=== PATIENT | male | born 1975 | race African-American/Black ===

== ENCOUNTER 2019-02-09 01:18 | Emergency (ER) | payer OTHER ==
[~2019-02-09] VITALS: Ht 188 cm; Wt 135.2 kg
[2019-02-09] MEDS ORDERED: IPRATRPIUM/ALBUTEROL 0.5/2.5MG 3 ML NEBU. NEB ONE (01:45)
[2019-02-09] MEDS ORDERED: KETOROLAC 15 MG/ML VIAL. ONE (01:45)
[2019-02-09] MEDS ORDERED: ACETAMINOPHEN 500 MG TABLET PO ONE (02:00)
[2019-02-09] MEDS ORDERED: KETOROLAC 15 MG/ML VIAL. IV ONE (02:00)
[2019-02-09] MEDS ORDERED: IV NORMAL SALINE 1,000ML 1,000 ML IV ONE (02:00)
[2019-02-09 02:09] LABS: BASO # 0.1 x10^3/uL (0.0-0.2); BASO % 1 % (0-3); EOS # 0.3 x10^3/uL (0.0-0.7); EOS % 4 % (0-3); HEMATOCRIT 42.9 % (39.0-53.0); HEMOGLOBIN 14.3 g/dL (13.0-17.5); LYMPH # 1.9 x10^3/uL (1.0-4.8); LYMPH % 19 % (24-48); MEAN CORPUSCULAR HEMOGLOBIN 30 pg (25-35); MEAN CORPUSCULAR HGB CONC 33 g/dL (31-37); MEAN CORPUSCULAR VOLUME 89 fL (79-100); MONO # 0.8 x10^3/uL (0.0-1.1); MONO % 8 % (0-9); NEUT # 6.8 x10^3uL (1.8-7.7); NEUT % 69 % (31-73); PLATELET COUNT 149 x10^3/uL (140-400); RED CELL DISTRIBUTION WIDTH 13.7 % (11.5-14.5); WHITE BLOOD COUNT 9.9 x10^3/uL (4.0-11.0)
--- NOTE | 2019-02-09 02:12 | RAD ---
CHEST PA LATERAL History: Fever. Cough. Comparison: None. Findings: No consolidation or pleural effusion. Normal heart size. No pneumothorax. Impression: 1. No acute cardiopulmonary process. Electronically signed by: Octavio Olivas DO (02/09/2019 2:09 AM) [facility]
[2019-02-09 02:29] LABS: ALBUMIN 3.6 g/dL (3.4-5.0); ALBUMIN/GLOBULIN RATIO 0.8 (1.0-1.7); CALCIUM 8.7 mg/dL (8.5-10.1); CREATININE 1.3 mg/dL (0.7-1.3); GFR 72.2; POTASSIUM 3.9 mmol/L (3.5-5.1); TOTAL BILIRUBIN 0.3 mg/dL (0.2-1.0); TOTAL PROTEIN 8.1 g/dL (6.4-8.2)
[2019-02-09 02:37] LABS: INFLUENZA A PATIENT NEGATIVE (NEGATIVE); INFLUENZA B PATIENT NEGATIVE (NEGATIVE)
[2019-02-09] MEDS ORDERED: DOXY100C2 PO (02:58)
[2019-02-09] MEDS ORDERED: ALBU2.5V8 IH (02:58)
--- NOTE | 2019-02-09 03:02 | PHYS DOC ---
Past History Past Medical History: No Pertinent History Additional Past Surgical Histo: KNEE Alcohol Use: None Drug Use: None Adult General Chief Complaint Chief Complaint: COUGH HPI HPI Patient is a 43-year-old male presenting with cough shortness of breath cough with some [place] yellow sputum subjective fever body aches onset 3 days ago has some chest tightness feel sharp with coughing. Just moved here from out of town. Does not have a doctor at this time does not smoke denies any previous medical history no alcohol or drugs. Medical decision making: EKG did show a sinus tachycardia with a rate of 123 there were no acute ischemic changes noted this was interpreted by me at the time of the encounter. Chest x- ray was negative acute patient felt much better in the emergency room after albuterol treatment heart rate came down to 105 initially was in the 120s initial oxygenation was in the low 90s 90-93 range that came up to 96% on room air and he said he felt much better after nebs At this point time discharged with antibiotics and albuterol inhaler D Instructions to follow-up with primary care to monitor his blood pressure and make sure he is improving he was given information on local physicians to contact. Influenza study was negative Lab work was essentially unremarkable Review of Systems Review of Systems Constitutional: Denies fever or chills [] Eyes: Denies change in visual acuity, redness, or eye pain [] HENT: Denies nasal congestion or sore throat [] Respiratory: Denies cough or shortness of breath [] Cardiovascular: No additional information not addressed in HPI [] GI: Denies abdominal pain, nausea, vomiting, bloody stools or diarrhea [] : Denies dysuria or hematuria [] Musculoskeletal: Denies back pain or joint pain [] Integument: Denies rash or skin lesions [] Neurologic: Denies headache, focal weakness or sensory changes [] Endocrine: Denies polyuria or polydipsia [] All other systems were reviewed and found to be within normal limits, except as documented in this note. Current Medications Current Medications Current Medications Medications (Trade) Dose Ordered Sig/Christian Start Time Stop Time Status Last Admin Dose Admin Acetaminophen (Tylenol) 1,000 mg 1X ONCE 02/09/19 02:00 02/09/19 02:01 DC 02/09/19 02:03 1,000 MG Albuterol/ Ipratropium (Duoneb) 3 ml 1X ONCE 02/09/19 01:45 02/09/19 01:46 DC 02/09/19 01:43 3 ML Ketorolac Tromethamine (Toradol 15mg Vial) 15 mg STK-MED ONCE 02/09/19 01:45 02/09/19 01:46 DC Sodium Chloride 1,000 ml @ 1,000 mls/hr 1X ONCE 02/09/19 02:00 02/09/19 02:59 DC 02/09/19 02:04 1,000 MLS/HR Allergies Allergies Allergies Coded Allergies Type Severity Reaction Last Updated Verified No Known Drug Allergies 02/09/19 No Physical Exam Physical Exam Constitutional: Well developed, well nourished, no acute distress, non-toxic appearance. [] HENT: Normocephalic, atraumatic, bilateral external ears normal, oropharynx moist, no oral exudates, nose normal. [] Eyes: PERRLA, EOMI, conjunctiva normal, no discharge. [] Neck: Normal range of motion, no tenderness, supple, no stridor. [] Cardiovascular: Tachycardic no definite murmur Lungs & Thorax: Decreased bibasilar breath sounds with some faint wheezing noted Abdomen: Bowel sounds normal, soft, no tenderness, no masses, no pulsatile masses. [] Skin: Warm, dry, no erythema, no rash. [] Back: No tenderness, no CVA tenderness. [] Extremities: No tenderness, no cyanosis, no clubbing, ROM intact, no edema. [] Neurologic: Alert and oriented X 3, normal motor function, normal sensory function, no focal deficits noted. [] Psychologic: Affect normal, judgement normal, mood normal. [] Current Patient Data Vital Signs Vital Signs Date Time Temp Pulse Resp B/P (MAP) Pulse Ox O2 Delivery O2 Flow Rate FiO2 02/09/19 01:22 99.2 125 18 94 Room Air Lab Results Laboratory Tests Test 02/09/19 01:54 02/09/19 01:55 White Blood Count 9.9 x10^3/uL (4.0-11.0) Red Blood Count 4.80 x10^6/uL (4.30-5.70) Hemoglobin 14.3 g/dL (13.0-17.5) Hematocrit 42.9 % (39.0-53.0) Mean Corpuscular Volume 89 fL (79-100) Mean Corpuscular Hemoglobin 30 pg (25-35) Mean Corpuscular Hemoglobin Concent 33 g/dL (31-37) Red Cell Distribution Width 13.7 % (11.5-14.5) Platelet Count 149 x10^3/uL (140-400) Neutrophils (%) (Auto) 69 % (31-73) Lymphocytes (%) (Auto) 19 % (24-48) L Monocytes (%) (Auto) 8 % (0-9) Eosinophils (%) (Auto) 4 % (0-3) H Basophils (%) (Auto) 1 % (0-3) Neutrophils # (Auto) 6.8 x10^3uL (1.8-7.7) Lymphocytes # (Auto) 1.9 x10^3/uL (1.0-4.8) Monocytes # (Auto) 0.8 x10^3/uL (0.0-1.1) Eosinophils # (Auto) 0.3 x10^3/uL (0.0-0.7) Basophils # (Auto) 0.1 x10^3/uL (0.0-0.2) Sodium Level 142 mmol/L (136-145) Potassium Level 3.9 mmol/L (3.5-5.1) Chloride Level 104 mmol/L (98-107) Carbon Dioxide Level 27 mmol/L (21-32) Anion Gap 11 (6-14) Blood Urea Nitrogen 16 mg/dL (8-26) Creatinine 1.3 mg/dL (0.7-1.3) Estimated GFR (Cockcroft-Gault) 72.2 BUN/Creatinine Ratio 12 (6-20) Glucose Level 117 mg/dL (70-99) H Calcium Level 8.7 mg/dL (8.5-10.1) Total Bilirubin 0.3 mg/dL (0.2-1.0) Aspartate Amino Transferase (AST) 31 U/L (15-37) Alanine Aminotransferase (ALT) 41 U/L (16-63) Alkaline Phosphatase 66 U/L (46-116) Troponin I Quantitative < 0.017 ng/mL (0-0.055) MN-Ytl-W-Type Natriuretic Peptide 27 pg/mL (0-124) Total Protein 8.1 g/dL (6.4-8.2) Albumin 3.6 g/dL (3.4-5.0) Albumin/Globulin Ratio 0.8 (1.0-1.7) L Influenza Type A (Rapid) Negative (NEGATIVE) Influenza Type B (Rapid) Negative (NEGATIVE) EKG EKG [] Radiology/Procedures Radiology/Procedures []f Present Illness PATIENT PRESENTS TO ED VIA POV, C/O COUGH AND CHEST CONGESTION FOR 3 DAYS. NOTICED PINKISH PHLEGM COUGH UP AND SOA. STATES HE HAD A FEVER OF 102.4 EARLIER TODAY Distress None Temperature (Fahrenheit): 99.2 degrees F (97.6-99.5) Patient Temperature 99.2 degrees F (97.5-99.5) Temperature Source Oral Blood Pressure Systolic 158 mm Hg (100-140) H Blood Pressure Diastolic 81 mm Hg (60-100) Blood Pressure Mean 106 mm Hg Blood Pressure Location Right Arm Blood Pressure Source Automatic Cuff Pulse Rate 125 beats per minute (60-90) H Pulse Assessment Method Monitor Respiratory Rate 18 breaths per minute (12-24) Oxygen Delivery Method Room Air Impressions: Findings: No consolidation or pleural effusion. Normal heart size. No pneumothorax. Impression: 1. No acute cardiopulmonary process. Electronically signed by: Octavio Olivas DO (02/09/2019 2:09 AM) [facility] DICTATED AND SIGNED BY: OCTAVIO OLIVAS DO DATE: 02/09/19 0209 CC: ISSA LARKIN MD; PCP,NO ~ Course & Med Decision Making Course & Med Decision Making Pertinent Labs and Imaging studies reviewed. (See chart for details) []CHPI FOR [facility] Guy Disclaimer Dragon Disclaimer This electronic medical record was generated, in whole or in part, using a voice recognition dictation system. Departure Departure: Impression: Primary Impression: Bronchitis Disposition: 01 HOME, SELF-CARE Condition: STABLE Referrals: PCP,NO (PCP) Patient Instructions: Bronchitis, [id number] Additional Instructions: IN [place], DR BISHOP OR DR SCHAFFER IN [facility], [facility], [facility] OR [facility] ARE ALL QUITE RESPONSIVE AND EXPERIENCED. IN [place], DR DAISY BARTON. Scripts Albuterol Sulfate (PROAIR HFA INHALER) 8.5 Gm Hfa.aer.ad 2 PUFF IH PRN Q4-6HRS PRN for wheezing for 21 Days, #1 INHALER 0 Refills Prov: ISSA LARKIN MD 02/09/19 Doxycycline Hyclate (DOXYCYCLINE HYCLATE) 100 Mg Capsule 1 CAP PO BID for BRONCHITIS, #14 CAP Prov: ISSA LARKIN MD 02/09/19 ISSA LARKIN MD Feb 09, 2019 03:02
[2019-02-09 03:08] VITALS: BP 147/81
--- NOTE | 2019-02-09 03:48 | EKG ---
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
== END 2019-02-09 03:12 | disposition home or self-care (01) ==
LOC: ER 01:18
DX: J40 Bronchitis, not specified as acute or chronic (principal); R00.0 Tachycardia, unspecified
CPT/HCPCS: 36415; 71046; 80053; 83880; 84484; 85025; 87040; 87804; 93005; 94640; 96374; 99285; J1885; J7620; J7030